=== PATIENT | female | born 1985 | race Asian ===

== ENCOUNTER → 2017-09-23 | Outpatient (CLI) | payer OTHER ==
[~2017-09-23] MED LIST: Ativan0.5 MG PO; BUSP15 PO; CYCL10 PO; GABA300 PO; MECL25 PO; NAPR500; NORETHTP; PERP4 PO; RXCYCL10 PO; RXHYD5325 PO; SERT100
[2017-09-23 10:21] LABS: Specimen Source URINE
[2017-09-24 14:39] LABS: Source Urine
[2017-09-26 12:22] LABS: HPV Genotype 16 Not Detected (NOTDET); HPV Genotype 18 Not Detected (NOTDET); HPV High Risk Other Detected (NOTDET)
== END ==
LOC: LAB 10:00
PROVIDERS: Nurse Practitioner Family
DX: Z12.4 Encounter for screening for malignant neoplasm of cervix (principal); Z11.8 Encounter for screening for other infectious and parasitic diseases
CPT/HCPCS: 87491; 87591; 87624; G0145

== ENCOUNTER 2018-09-15 13:59 | Emergency (ER) | payer OTHER ==
[~2018-09-15] VITALS: Ht 160 cm; Wt 81.2 kg
[2018-09-15 15:02] LABS: BASOPHILS ABSOLUTE AUTO 0.09 K/mm3 (0.00-0.23); BASOPHILS PERCENT AUTO 1 % (0-2); EOSINOPHILS ABSOLUTE AUTO 0.38 K/mm3 (0.00-0.68); EOSINOPHILS PERCENT AUTO 4 % (0-6); Hemoglobin 13.1 g/dL (11.5-16.0); IMMATURE GRAN ABSOLUTE AUTO 0.03 K/mm3 (0.00-0.10); IMMATURE GRAN PERCENT AUTO 0 % (0-1); LYMPHOCYTES ABSOLUTE AUTO 2.63 K/mm3 (0.84-5.20); LYMPHOCYTES PERCENT AUTO 27 % (21-46); MONOCYTES ABSOLUTE AUTO 0.72 K/mm3 (0.16-1.47); MONOCYTES PERCENT AUTO 8 % (4-13); Mean Corpuscular HGB 26.5 pg (26.0-34.0); Mean Corpuscular HGB Conc 31.2 g/dL (31.5-36.5); Mean Corpuscular Volume 85 fL (80-100); Mean Platelet Volume 9.8 fL (9.1-12.4); NEUTROPHILS ABSOLUTE AUTO 5.77 K/mm3 (1.96-9.15); NEUTROPHILS PERCENT AUTO 60 % (41-73); Platelet Count 305 K/mm3 (150-400); RDW Coefficient Variation 13.5 % (11.7-14.2); RDW Standard Deviation 42.1 fL (35.1-46.3); Red Blood Cell Count 4.94 M/mm3 (3.80-5.20); White Blood Cell Count 9.62 K/mm3 (4.00-11.30)
[2018-09-15 15:18] LABS: Source, Urine Clean Catch
[2018-09-15 15:23] LABS: Alanine Aminotransfer (ALT/SGP 37 U/L (12-78); Albumin, Blood 4.2 g/dL (3.4-5.0); Albumin/Globulin Ratio 1.1 (0.8-1.8); Alk Phos 77 U/L (50-136); Anion Gap 8 mmol/L (6-16); Aspartate Aminotrans (AST/SGOT 18 U/L (12-37); Bilirubin, Total 0.3 mg/dL (0.1-1.0); Blood Urea Nitrogen 9 mg/dL (8-24); Bun/Creatinine Ratio 12.7 (12.0-20.0); CO2, Blood 25 mmol/L (21-32); Calcium, Blood 8.9 mg/dL (8.5-10.1); Chloride, Blood 108 mmol/L (98-108); Creatinine, Blood 0.71 mg/dL (0.40-1.00); Globulin, Blood 3.9 g/dL (2.2-4.0); Glomerular Filtration Rate >60 (60-); Glucose, Blood 90 mg/dL (70-99); Sodium, Blood 141 mmol/L (136-145); Total Protein, Blood 8.1 g/dL (6.4-8.2)
[2018-09-15 15:23] LABS: Bilirubin, Urine Neg (Neg); Blood, Urine Neg (Neg); Glucose Qualitative, Urine Neg (Neg); Ketones, Urine 1+ (Neg); Leukocyte Esterase, Urine Neg (Neg); Nitrite, Urine Neg (Neg); Protein, Urine Neg (Neg); Urobilinogen, Urine NORM (Normal)
[2018-09-15 15:26] LABS: Thyroid Stimulating Hormone 0.672 uIU/mL (0.360-4.800)
[2018-09-15 15:31] LABS: Appearance, Urine Clear (Clear); Color, Urine Yellow (P-Yellow)
[2018-09-15 15:36] LABS: U Amphetamine Screen Not Detected; U Barbituate Screen Not Detected; U Benzodiazapine Screen Not Detected; U Buprenorphine Screen Not Detected; U Cannabinoids Screen Not Detected; U Cocaine Screen Not Detected; U Methadone Screen Not Detected; U Methamphetamine Screen Not Detected; U Opiates Screen Not Detected; U Oxycodone Screen Not Detected; U Phencyclidine Screen Not Detected; U Propoxyphene Screen Not Detected
[2018-09-15] MEDS ORDERED: Cymbalta30 MG PO (17:34)
[2018-09-15] MEDS ORDERED: FLUP5 PO ×2 (17:34)
== END 2018-09-15 18:07 | disposition home or self-care (01) ==
LOC: ER 13:59
PROVIDERS: Physician Assistant
DX: F31.9 Bipolar disorder, unspecified (principal); Z91.19 Patient's noncompliance with other medical treatment and regimen; F43.9 Reaction to severe stress, unspecified; Z88.8 Allergy status to other drugs, medicaments and biological substances; Z79.899 Other long term (current) drug therapy; F17.200 Nicotine dependence, unspecified, uncomplicated
CPT/HCPCS: 36415; 80053; 81003; 81025; 84443; 85025; 99284; J2680; Q3014

== ENCOUNTER 2018-12-27 04:28 | Emergency (ER) | payer OTHER ==
[~2018-12-27] VITALS: Ht 160 cm; Wt 88.5 kg
[~2018-12-27 04:28] MED LIST changes: +Cymbalta30 MG PO; +FLUP5 PO
[2018-12-27] MEDS ORDERED: PERP8 PO (04:38)
[2018-12-27] MEDS ORDERED: AMIT25 PO (04:38)
== END 2018-12-27 05:00 | disposition home or self-care (01) ==
LOC: ER 04:28
DX: R51 Headache (principal); Z88.8 Allergy status to other drugs, medicaments and biological substances; Z79.899 Other long term (current) drug therapy; F31.9 Bipolar disorder, unspecified; F32.9 Major depressive disorder, single episode, unspecified; F43.10 Post-traumatic stress disorder, unspecified; Z87.891 Personal history of nicotine dependence
CPT/HCPCS: 96372; 99283-25; J1885

== ENCOUNTER 2018-12-28 09:50 | Emergency (ER) | payer OTHER ==
[~2018-12-28] VITALS: Ht 160 cm; Wt 88.5 kg
[~2018-12-28 09:50] MED LIST changes: +AMIT25 PO; +PERP8 PO
== END 2018-12-28 11:52 | disposition home or self-care (01) ==
LOC: ER 09:50
DX: R51 Headache (principal); F31.9 Bipolar disorder, unspecified; F41.9 Anxiety disorder, unspecified; F43.10 Post-traumatic stress disorder, unspecified; Z88.8 Allergy status to other drugs, medicaments and biological substances; Z79.899 Other long term (current) drug therapy; Z87.891 Personal history of nicotine dependence
CPT/HCPCS: 36415; 96374; 96375; 99283-25; J0780; J1200; J1885; J7120

== ENCOUNTER 2019-03-21 12:45 | Emergency (ER) | payer OTHER ==
[~2019-03-21] VITALS: Ht 160 cm; Wt 97.5 kg
[~2019-03-21 12:45] MED LIST changes: +GABA600 PO; +KETO10 PO
[2019-03-21] MEDS ORDERED: PROP10 PO (13:02)
[2019-03-21] MEDS ORDERED: AMIT50 PO (13:07)
[2019-03-21] MEDS ORDERED: ACET500 PO (13:07)
[2019-03-21] MEDS ORDERED: IBUP800 PO (13:08)
== END 2019-03-21 13:49 | disposition home or self-care (01) ==
LOC: ER 12:45
DX: G43.909 Migraine, unspecified, not intractable, without status migrainosus (principal); Z88.8 Allergy status to other drugs, medicaments and biological substances; Z79.899 Other long term (current) drug therapy; F31.9 Bipolar disorder, unspecified; F43.10 Post-traumatic stress disorder, unspecified; F17.290 Nicotine dependence, other tobacco product, uncomplicated
CPT/HCPCS: 96372; 99283-25; J1100; J1200; J1885; J2765

== ENCOUNTER 2019-05-26 19:56 | Emergency (ER) | payer MEDICAID ==
[~2019-05-26] VITALS: Ht 160 cm; Wt 91.6 kg
[~2019-05-26 19:56] MED LIST changes: +ACET500 PO; +AMIT50 PO; +IBUP800 PO; +PROP10 PO
== END 2019-05-26 21:31 | disposition home or self-care (01) ==
LOC: ER 19:56
DX: F41.0 Panic disorder [episodic paroxysmal anxiety] (principal); Z87.891 Personal history of nicotine dependence; Z88.8 Allergy status to other drugs, medicaments and biological substances
CPT/HCPCS: 84484; 93005; 93010; 96374; 99284-25; J2060

== ENCOUNTER 2019-08-08 23:06 | Emergency (ER) | payer OTHER ==
[~2019-08-08] VITALS: Ht 160 cm; Wt 77.1 kg
[2019-08-08 23:35] LABS: BASOPHILS ABSOLUTE AUTO 0.07 K/mm3 (0.00-0.23); BASOPHILS PERCENT AUTO 1 % (0-2); EOSINOPHILS ABSOLUTE AUTO 0.24 K/mm3 (0.00-0.68); EOSINOPHILS PERCENT AUTO 2 % (0-6); Hematocrit 39.9 % (33.0-51.0); Hemoglobin 13.6 g/dL (11.5-16.0); IMMATURE GRAN ABSOLUTE AUTO 0.02 K/mm3 (0.00-0.10); IMMATURE GRAN PERCENT AUTO 0 % (0-1); LYMPHOCYTES ABSOLUTE AUTO 3.02 K/mm3 (0.84-5.20); LYMPHOCYTES PERCENT AUTO 28 % (21-46); MONOCYTES ABSOLUTE AUTO 1.13 K/mm3 (0.16-1.47); MONOCYTES PERCENT AUTO 11 % (4-13); Mean Corpuscular HGB 28.9 pg (26.0-34.0); Mean Corpuscular HGB Conc 34.1 g/dL (31.5-36.5); Mean Corpuscular Volume 85 fL (80-100); Mean Platelet Volume 9.6 fL (9.1-12.4); NEUTROPHILS ABSOLUTE AUTO 6.28 K/mm3 (1.96-9.15); NEUTROPHILS PERCENT AUTO 58 % (41-73); Platelet Count 359 K/mm3 (150-400); RDW Coefficient Variation 12.4 % (11.7-14.2); RDW Standard Deviation 38.5 fL (35.1-46.3); White Blood Cell Count 10.76 K/mm3 (4.00-11.30)
[2019-08-08 23:54] LABS: Alanine Aminotransfer (ALT/SGP 68 U/L (12-78); Albumin, Blood 4.4 g/dL (3.4-5.0); Albumin/Globulin Ratio 1.2 (0.8-1.8); Alk Phos 72 U/L (50-136); Anion Gap 11 mmol/L (6-16); Aspartate Aminotrans (AST/SGOT 45 U/L (12-37); Bilirubin, Total 0.4 mg/dL (0.1-1.0); Blood Urea Nitrogen 17 mg/dL (8-24); Bun/Creatinine Ratio 21.6 (12.0-20.0); CO2, Blood 20 mmol/L (21-32); Calcium, Blood 9.1 mg/dL (8.5-10.1); Chloride, Blood 109 mmol/L (98-108); Creatinine, Blood 0.79 mg/dL (0.40-1.00); Globulin, Blood 3.8 g/dL (2.2-4.0); Glomerular Filtration Rate >60 (60-); Glucose, Blood 90 mg/dL (70-99); Potassium, Blood 3.2 mmol/L (3.5-5.5); Sodium, Blood 140 mmol/L (136-145); Total Protein, Blood 8.2 g/dL (6.4-8.2)
[2019-08-09 00:22] LABS: Source, Urine Clean Catch
[2019-08-09 00:24] LABS: Blood, Urine 1+ (Neg); Glucose Qualitative, Urine Neg (Neg); Ketones, Urine 4+ (Neg); Leukocyte Esterase, Urine 1+ (Neg); Nitrite, Urine Neg (Neg); Protein, Urine 1+ (Neg); Urobilinogen, Urine 2+ (Normal)
[2019-08-09 00:37] LABS: Appearance, Urine Hazy (Clear); Bilirubin, Urine 1+ (Neg); Color, Urine Amber (P-Yellow)
[2019-08-09 00:40] LABS: Bacteria Few /hpf; Mucus Mod (0-Heavy); Red Blood Cells, Urine Not Seen /hpf (0-2); Squamous Epithelial Cells Few /hpf (Few); White Blood Cells, Urine 0-2 /hpf (0-5)
== END 2019-08-09 02:52 | disposition home or self-care (01) ==
LOC: ER 23:06
PROVIDERS: Emergency Medicine
DX: K59.00 Constipation, unspecified (principal); Z87.891 Personal history of nicotine dependence; Z88.8 Allergy status to other drugs, medicaments and biological substances
CPT/HCPCS: 36415; 72193; 80053; 81001; 83690; 84703; 85025; 87086; 96374; 96375; 99284; J2405; J3010; Q9967

== ENCOUNTER 2019-09-06 12:06 | Emergency (ER) | payer OTHER ==
[~2019-09-06] VITALS: Ht 160 cm; Wt 77.1 kg
[2019-09-06 12:56] LABS: BASOPHILS ABSOLUTE AUTO 0.04 K/mm3 (0.00-0.23); BASOPHILS PERCENT AUTO 0 % (0-2); EOSINOPHILS ABSOLUTE AUTO 0.02 K/mm3 (0.00-0.68); EOSINOPHILS PERCENT AUTO 0 % (0-6); Hematocrit 39.1 % (33.0-51.0); Hemoglobin 12.9 g/dL (11.5-16.0); IMMATURE GRAN ABSOLUTE AUTO 0.06 K/mm3 (0.00-0.10); IMMATURE GRAN PERCENT AUTO 0 % (0-1); LYMPHOCYTES ABSOLUTE AUTO 0.67 K/mm3 (0.84-5.20); LYMPHOCYTES PERCENT AUTO 4 % (21-46); MONOCYTES ABSOLUTE AUTO 0.99 K/mm3 (0.16-1.47); MONOCYTES PERCENT AUTO 6 % (4-13); Mean Corpuscular HGB 28.9 pg (26.0-34.0); Mean Corpuscular Volume 88 fL (80-100); Mean Platelet Volume 9.9 fL (9.1-12.4); NEUTROPHILS ABSOLUTE AUTO 14.15 K/mm3 (1.96-9.15); NEUTROPHILS PERCENT AUTO 89 % (41-73); Platelet Count 318 K/mm3 (150-400); RDW Coefficient Variation 12.8 % (11.7-14.2); RDW Standard Deviation 41.3 fL (35.1-46.3); Red Blood Cell Count 4.46 M/mm3 (3.80-5.20); White Blood Cell Count 15.93 K/mm3 (4.00-11.30)
[2019-09-06 13:11] LABS: International Normalized Ratio 0.97; Prothrombin Time Results 10.4 Sec (9.7-11.5)
[2019-09-06 13:13] LABS: Alanine Aminotransfer (ALT/SGP 120 U/L (12-78); Albumin, Blood 3.8 g/dL (3.4-5.0); Albumin/Globulin Ratio 0.9 (0.8-1.8); Alk Phos 124 U/L (50-136); Anion Gap 7 mmol/L (6-16); Aspartate Aminotrans (AST/SGOT 50 U/L (12-37); Bilirubin, Total 1.3 mg/dL (0.1-1.0); Blood Urea Nitrogen 20 mg/dL (8-24); Bun/Creatinine Ratio 32.3 (12.0-20.0); CO2, Blood 23 mmol/L (21-32); Calcium, Blood 9.1 mg/dL (8.5-10.1); Chloride, Blood 105 mmol/L (98-108); Creatinine, Blood 0.62 mg/dL (0.40-1.00); Globulin, Blood 4.4 g/dL (2.2-4.0); Glomerular Filtration Rate >60 (60-); Glucose, Blood 92 mg/dL (70-99); Sodium, Blood 135 mmol/L (136-145); Total Protein, Blood 8.2 g/dL (6.4-8.2)
[2019-09-06 13:58] LABS: Source, Urine Clean Catch
[2019-09-06 14:11] LABS: Blood, Urine 1+ (Neg); Glucose Qualitative, Urine Neg (Neg); Ketones, Urine 4+ (Neg); Leukocyte Esterase, Urine 1+ (Neg); Nitrite, Urine Neg (Neg); Protein, Urine 2+ (Neg); Specific Gravity, Urine 1.015 (1.003-1.022); Urobilinogen, Urine 1+ (Normal)
[2019-09-06 14:20] LABS: Bilirubin, Urine 1+ (Neg)
[2019-09-06 14:21] LABS: Appearance, Urine Clear (Clear); Color, Urine Amber (P-Yellow); Mucus Light (0-Heavy)
[2019-09-06 14:22] LABS: Bacteria Few /hpf; Red Blood Cells, Urine 0-2 /hpf (0-2); Squamous Epithelial Cells Few /hpf (Few)
[2019-09-06] MEDS ORDERED: Percocet 5-3251 EACH PO (18:26)
[2019-09-07] MEDS ORDERED: Mupirocin22 GM TOP (12:21)
== END 2019-09-06 18:34 | disposition home or self-care (01) ==
LOC: ER 12:06
PROVIDERS: Physician Assistant
DX: L02.413 Cutaneous abscess of right upper limb (principal); L03.113 Cellulitis of right upper limb; F41.9 Anxiety disorder, unspecified; F32.9 Major depressive disorder, single episode, unspecified; F43.10 Post-traumatic stress disorder, unspecified; G43.909 Migraine, unspecified, not intractable, without status migrainosus; Z88.8 Allergy status to other drugs, medicaments and biological substances; F17.219 Nicotine dependence, cigarettes, with unspecified nicotine-induced disorders
CPT/HCPCS: 10061; 36415; 73080; 80053; 81001; 83605; 85025; 85610; 85730; 87070; 87077; 87086; 87186; 87205; 96365-59; 96375-59; 99283-25; J0696; J1885

== ENCOUNTER 2019-09-07 07:31 | Inpatient (IN) | payer OTHER ==
[~2019-09-07] VITALS: Ht 170.2 cm; Wt 78.2 kg
[~2019-09-07 07:31] MED LIST changes: +Percocet 5-3251 EACH PO
[2019-09-07 09:10] LABS: BASOPHILS ABSOLUTE AUTO 0.03 K/mm3 (0.00-0.23); BASOPHILS PERCENT AUTO 0 % (0-2); EOSINOPHILS ABSOLUTE AUTO 0.11 K/mm3 (0.00-0.68); EOSINOPHILS PERCENT AUTO 1 % (0-6); Hematocrit 33.9 % (33.0-51.0); Hemoglobin 11.3 g/dL (11.5-16.0); IMMATURE GRAN ABSOLUTE AUTO 0.05 K/mm3 (0.00-0.10); IMMATURE GRAN PERCENT AUTO 0 % (0-1); LYMPHOCYTES ABSOLUTE AUTO 1.43 K/mm3 (0.84-5.20); LYMPHOCYTES PERCENT AUTO 11 % (21-46); MONOCYTES ABSOLUTE AUTO 1.35 K/mm3 (0.16-1.47); MONOCYTES PERCENT AUTO 10 % (4-13); Mean Corpuscular HGB 29.1 pg (26.0-34.0); Mean Corpuscular HGB Conc 33.3 g/dL (31.5-36.5); Mean Corpuscular Volume 87 fL (80-100); NEUTROPHILS ABSOLUTE AUTO 10.48 K/mm3 (1.96-9.15); NEUTROPHILS PERCENT AUTO 78 % (41-73); Platelet Count 302 K/mm3 (150-400); RDW Coefficient Variation 12.8 % (11.7-14.2); RDW Standard Deviation 41.1 fL (35.1-46.3); Red Blood Cell Count 3.88 M/mm3 (3.80-5.20); White Blood Cell Count 13.45 K/mm3 (4.00-11.30)
[2019-09-07 09:18] LABS: Alanine Aminotransfer (ALT/SGP 104 U/L (12-78); Albumin, Blood 3.2 g/dL (3.4-5.0); Anion Gap 8 mmol/L (6-16); Aspartate Aminotrans (AST/SGOT 42 U/L (12-37); Blood Urea Nitrogen 13 mg/dL (8-24); Bun/Creatinine Ratio 22.9 (12.0-20.0); CO2, Blood 22 mmol/L (21-32); Calcium, Blood 8.6 mg/dL (8.5-10.1); Chloride, Blood 105 mmol/L (98-108); Creatinine, Blood 0.57 mg/dL (0.40-1.00); Glomerular Filtration Rate >60 (60-); Glucose, Blood 99 mg/dL (70-99); Potassium, Blood 3.6 mmol/L (3.5-5.5); Sodium, Blood 135 mmol/L (136-145)
[2019-09-07 09:20] LABS: Albumin/Globulin Ratio 0.8 (0.8-1.8); Alk Phos 148 U/L (50-136); Bilirubin, Total 0.7 mg/dL (0.1-1.0); Total Protein, Blood 7.2 g/dL (6.4-8.2)
[2019-09-07] MEDS ORDERED: Mupirocin22 GM TOP (12:21)
[2019-09-07 12:26] LABS: U Benzodiazapine Screen DETECTED; U Opiates Screen DETECTED
[2019-09-07 12:27] LABS: U Amphetamine Screen Not Detected; U Barbituate Screen Not Detected; U Buprenorphine Screen Not Detected; U Cannabinoids Screen Not Detected; U Cocaine Screen Not Detected; U Methadone Screen Not Detected; U Methamphetamine Screen Not Detected; U Oxycodone Screen DETECTED; U Phencyclidine Screen Not Detected; U Propoxyphene Screen Not Detected
--- NOTE | 2019-09-07 15:56 | NUR ---
SHIFT SUMMARY PT ARRIVED FROM THE ER THIS AFTERNOON AND WALKED TO HER ROOM. SHE IS A/O X 4 AND HER ARM IS PAINFUL WITH TOUCH BUT OK AT REST. SHE HAS REDNESS, SWELLING WITH PURULENT AND SANGUINEOUS DRAINAGE AND WARMTH TO HER ARM. THE PT REPORTS THAT SHE ORIGINALLY THOUGHT THE INFECTION WAS FROM HER TATTOO WHICH SHE RECEIVED APPROX 2 WEEKS AGO BUT IS NOW WONDERING IF IT IS ACTUALLY RELATED SINCE ITS NOT ON THE ACTUAL INK SITE. PT STATES THAT IT MAY BE FROM A BUG BITE BUT SHES UNSURE OF THE SOURCE NOW. SURGICAL CONSULT WAS CALLED IN ORDERED AND DR BARAJAS CAME TO SEE THE PT AT THE BEDSIDE, DR BARAJAS ASKED THAT HER ARM BE ELEVATED ABOVE HER HEART SHE CAN TOLERATE TO HELP WITH THE SWELLING. EXTREMITY WAS ELEVATED ON PILLOWS. . THE ER SARAI A BORDER AROUND THE REDNESS AND OF NOW IT REMAINS WITHIN THE BORDER. ROM IS INTACT BUT SHE DOES REPORT INCREASED PAIN WITH EXTENSION OF HER RIGHT ELBOW. PT ALSO REPORTS THAT SHE IS NEEDING A NEW PSYCH PROVIDER SO SHE CAN "GET BACK ON HER MEDS", THERE IS A SCALE TANK OPERATOR CONSULT ORDER IN PLACE FOR THIS. PT WAS MEDICATED FOR PAIN IN HER ARM X 1 AND SHE REPORTS THAT IT WAS EFFECTIVE. PT IS IND IN HER ROOM AND AMBULATES TO THE TOILET. PT IS ABLE TO MAKE HER NEEDS KNOWN AND CALLS FOR HELP WHEN NEEDED.
--- NOTE | 2019-09-07 19:55 | NUR ---
PATIENT RESTING IN BED, R ARM ELEVATED. PT STATES HER PAIN IS ABOUT 3/10 AFTER RECEIVING PAIN MED FROM DAY RN. THERE IS REDNESS WITHIN A DEFINED AREA BUT NOT OUTSIDE. SHE SAYS THE SWELLING IS COMING DOWN. INCISION IS OPEN TO AIR. SHE HAS IVF GOING AT 200ML/HR. RESPIRATIONS EVEN AND UNLABORED. BED LOW AND LOCKED AND CALL SIDDIQUI WITHIN REACH.
--- NOTE | 2019-09-08 03:48 | NUR ---
SPOKE TO LAB; PATIENT HAS + BLOOD CULTURES. GRAM+ COCCI IN CLUSTERS. CALLED PHARMISIST - WHO SAID THAT CURRENT ANTIBIOTIC COVERAGE IS ADEQUATE. NO NEED TO REPORT TO ON-CALL HOSPITALIST.
[2019-09-08 05:08] LABS: Hematocrit 31.7 % (33.0-51.0); Hemoglobin 10.3 g/dL (11.5-16.0); Mean Corpuscular HGB 29.3 pg (26.0-34.0); Mean Corpuscular HGB Conc 32.5 g/dL (31.5-36.5); Mean Platelet Volume 9.9 fL (9.1-12.4); Platelet Count 253 K/mm3 (150-400); RDW Coefficient Variation 12.8 % (11.7-14.2); RDW Standard Deviation 42.5 fL (35.1-46.3); Red Blood Cell Count 3.52 M/mm3 (3.80-5.20); White Blood Cell Count 7.89 K/mm3 (4.00-11.30)
[2019-09-08 05:19] LABS: Mean Corpuscular Volume 90 fL (80-100)
[2019-09-08 05:56] LABS: Alanine Aminotransfer (ALT/SGP 79 U/L (12-78); Albumin, Blood 2.6 g/dL (3.4-5.0); Albumin/Globulin Ratio 0.7 (0.8-1.8); Alk Phos 140 U/L (50-136); Anion Gap 6 mmol/L (6-16); Aspartate Aminotrans (AST/SGOT 34 U/L (12-37); Bilirubin, Total 0.3 mg/dL (0.1-1.0); Blood Urea Nitrogen 10 mg/dL (8-24); Bun/Creatinine Ratio 19.5 (12.0-20.0); CO2, Blood 22 mmol/L (21-32); Calcium, Blood 8.1 mg/dL (8.5-10.1); Chloride, Blood 110 mmol/L (98-108); Creatinine, Blood 0.51 mg/dL (0.40-1.00); Globulin, Blood 3.5 g/dL (2.2-4.0); Glomerular Filtration Rate >60 (60-); Glucose, Blood 93 mg/dL (70-99); Potassium, Blood 3.7 mmol/L (3.5-5.5); Sodium, Blood 138 mmol/L (136-145); Total Protein, Blood 6.1 g/dL (6.4-8.2)
--- NOTE | 2019-09-08 06:15 | NUR ---
EOS: PATIENT SLEPT LITTLE THIS SHIFT. SHE RECVED PAIN MEDS AND IV ANTIBIOTICS PER ORDER. I SPOKE TO PHARMISIST AFTER LEARNNG THAT SHE HAD POSITIVE BLOOD CULTURES. hE SAID THAT HER ANTIBIOTIC COVERAGE WAS ADEQUATE. CHANGED THE PACKING IN HER WOUND AND SOPPED UP PURULENT DRAINAGE FROM THAT SITE WHILE CLEANING IT.
--- NOTE | 2019-09-08 11:34 | NUR ---
Echocardiogram completed.
[2019-09-08 17:25] LABS: Vancomycin, Trough 11.5 ug/mL (5.0-10.0)
--- NOTE | 2019-09-08 19:39 | NUR ---
SHIFT SUMMARY PT AXO, PLEASANT AND COOPERATIVE WITH CARE. NO ACUTE CHANGES THIS SHIFT. WOUND CONTINUES TO DRAIN MODERATE AMOUNT OF PURULENT SANGUANOUS FLUID. WOUND CLEANSED AND REPACKED THIS SHIFT. PT PREMEDICATED PER EMAR. PT UP AD DOMINGO IN ROOM AND OUTSIDE TO SMOKE. SMOKING EDUCATION AND CESSATION ENCOURAGED. BED IN LOW POSITION, CALL LIGHT WITHIN REACH.
--- NOTE | 2019-09-09 07:51 | NUR ---
EOS: NO CHANGES TO REPORT
[2019-09-09] MEDS ORDERED: AMOCLA875 PO (09:22)
[2019-09-09] MEDS ORDERED: Doxycycline Mo100 M1 PO (09:22)
--- NOTE | 2019-09-09 14:56 | NUR ---
DISCHARGE SUMMARY PT DISCHARGED TO HOME. PT LEFT ROOM WITH [employer] AND [employer]LE[employer] SPECIALIST ESCORT AT 1259. IV DC'D AND BELONGINGS RETURNED. WOUND CARE COMPLETED PRIOR TO DC. PT EDUCATED ON ALL DC INSTRUCTIONS AND ALL QUESTIONS ANSWERED. PT AGREES TO FOLLOW UP WITH PCP
== END 2019-09-09 12:59 | disposition home or self-care (01) | DRG 603 ==
LOC: ER 07:31 → MEDS 09:43 → EOR 09:43 → MEDS 13:23
PROVIDERS: Nurse Practitioner Acute Care; Physician Assistant; ADMIT Internal Medicine
DX: L03.113 Cellulitis of right upper limb (principal); B95.62 Methicillin resistant Staphylococcus aureus infection as the cause of diseases classified elsewhere; F31.9 Bipolar disorder, unspecified; F41.8 Other specified anxiety disorders; D64.9 Anemia, unspecified; F17.290 Nicotine dependence, other tobacco product, uncomplicated
CPT/HCPCS: 36415; 73201; 80053; 80202; 83605; 85025; 85027; 87040; 87077; 87147; 87186; 93306; 96365-59; 96375-59; 99284-25; A9270; J1170; J2405; J2543; J3370; J7030; J7050; Q9967

== ENCOUNTER → 2019-12-16 | Outpatient (CLI) | payer OTHER ==
[~2019-12-16] MED LIST changes: +AMOCLA875 PO; +Doxycycline Mo100 M1 PO; +Mupirocin22 GM TOP
== END | disposition home or self-care (01) ==
LOC: LAB SHORT 09:15 → LAB 09:15
DX: L08.9 Local infection of the skin and subcutaneous tissue, unspecified (principal)
CPT/HCPCS: 87070; 87077; 87147; 87186; 87205

== ENCOUNTER → 2020-01-14 | Outpatient (CLI) | payer OTHER | END | disposition home or self-care (01) | LOC: LAB 12:04 → LAB SHORT 12:04 | DX: L08.9 Local infection of the skin and subcutaneous tissue, unspecified (principal) | CPT/HCPCS: 87070; 87075; 87077; 87147; 87186; 87205 ==

== ENCOUNTER 2020-02-20 22:35 | Emergency (ER) | payer OTHER ==
[~2020-02-20] VITALS: Ht 160 cm; Wt 68.0 kg
[2020-02-20] MEDS ORDERED: BIRTH CONTROL IMPLAN (22:54)
[2020-02-21] MEDS ORDERED: ONDA4 MM (04:06)
[2020-02-21] MEDS ORDERED: NITR100CA PO (04:08)
== END 2020-02-21 04:53 | disposition home or self-care (01) ==
LOC: ER 22:35
DX: S16.1XXA Strain of muscle, fascia and tendon at neck level, initial encounter (principal); N39.0 Urinary tract infection, site not specified; F17.290 Nicotine dependence, other tobacco product, uncomplicated; Z88.8 Allergy status to other drugs, medicaments and biological substances; W22.8XXA Striking against or struck by other objects, initial encounter
CPT/HCPCS: 81025; 99284; A9270-GY